=== PATIENT | male | born 1965 | race Caucasian/White ===

== ENCOUNTER → 2018-08-29 | Day surgery (SDC) | payer OTHER ==
[~2018-08-29] MED LIST: FENTANYL CITRATE/PF 100MCG/2 ML INJ ONE; GLUCAGON FOR INJ 1 MG VIAL ONE; HYOSCYAMINE SULFATE 0.5 MG/ML INJ ONE; LIDOCAINE HCL 2% LOCAL INJ 5 ML SDV VIAL INJ ONE; MIDAZOLAM HCL 2 MG/2 ML VIAL ONE; PROPOFOL IV EMULSION 10 MG/ML 50 ML VIAL ONE
[2018-08-29 12:35] VITALS: BP 126/88
[2018-08-29 13:45] LABS: C DIFFICILE TOXIN A&B AMP PROB NEGATIVE (NEGATIVE); WBC,FECAL (FECAL LACTOFERRIN) NEGATIVE (NEGATIVE)
--- NOTE | 2018-08-29 18:26 | Operative Report ---
DATE OF PROCEDURE: 08/29/2018 SURGEON: Cornel Juarez MD PROCEDURE: Colonoscopy and polypectomy with biopsies. INDICATIONS FOR COLONOSCOPY: Diarrhea, change in bowel habits, history of bright red blood per rectum. MEDICATION: The patient was done under MAC, please see anesthesiologist's note. PROCEDURE IN DETAIL: With the patient in left lateral decubitus position, flexible fiberoptic Olympus colonoscope was inserted into the rectum with ease and advanced all the way to the cecum. Mucosa overlying the cecum appeared to be within normal limits. The ileocecal valve was intubated and the scope was advanced into the terminal ileum. Biopsies were obtained. The scope was then withdrawn back into the colon. It was then withdrawn slowly and mucosa overlying the ascending, transverse, descending, sigmoid, and rectum revealed some patchy mild inflammatory changes that was more prominent in the left colon and random biopsies were obtained. One polyp was hot biopsied from the distal sigmoid and one polyp was hot biopsied from the rectum. The scope was then retroflexed into the distal rectum and moderate-sized internal hemorrhoids were noted none of which was actively bleeding. The scope was then straightened out, it was subsequently withdrawn after securing an adequate stool specimen that was sent for the appropriate stool studies. The patient tolerated procedure well. IMPRESSION: 1. Mild patchy colitis. 2. Sigmoid colon polyp, hot biopsied. 3. Rectal polyp, hot biopsied. 4. Proctitis, mild. 5. Internal hemorrhoids, none actively bleeding. PLAN: Follow up histology. Initiate Bentyl 10 mg one p.o. t.i.d. and VSL#3 one p.o. q.i.d. The patient might benefit from a followup colonoscopy in 5 years. Cornel Juarez MD [facility] [place] /[id number] cc: Dcik Blum DO
== END | disposition home or self-care (01) ==
LOC: OR 06:00
PROVIDERS: ATTEND Internal Medicine Gastroenterology
DX: K52.9 Noninfective gastroenteritis and colitis, unspecified (principal); K63.5 Polyp of colon; K62.1 Rectal polyp; K62.89 Other specified diseases of anus and rectum; K64.8 Other hemorrhoids; E05.00 Thyrotoxicosis with diffuse goiter without thyrotoxic crisis or storm; L42 Pityriasis rosea; R00.1 Bradycardia, unspecified; Z01.810 Encounter for preprocedural cardiovascular examination
CPT/HCPCS: 45380; 45384; 83630; 83993; 87045; 87177; 87328; 87493; 93005 ×2; J1610; J1980; J2001; J2250; J2704; 45378; 45385

== ENCOUNTER → 2018-08-31 | Outpatient (CLI) | payer OTHER ==
[~2018-08-31] MED LIST changes: +DIATRIZOATE MEGL/DIATRIZOA SOD 30 ML BTL PO ONE; -FENTANYL CITRATE/PF 100MCG/2 ML INJ ONE; -GLUCAGON FOR INJ 1 MG VIAL ONE; -HYOSCYAMINE SULFATE 0.5 MG/ML INJ ONE; +IOPAMIDOL 370 MG/ML 200 ML INFUS..BTL INJ ONE; -LIDOCAINE HCL 2% LOCAL INJ 5 ML SDV VIAL INJ ONE; -MIDAZOLAM HCL 2 MG/2 ML VIAL ONE; -PROPOFOL IV EMULSION 10 MG/ML 50 ML VIAL ONE; +SODIUM CHLORIDE 0.9% 50ML 50 ML ONE
--- NOTE | 2018-08-31 14:25 | Diagnostic Imaging Report ---
EXAM: CT Abdomen and Pelvis with contrast INDICATION: Lower abdominal pain. COMPARISON: None. TECHNIQUE: Abdomen and pelvis were scanned utilizing a multidetector helical scanner from the lung base to the pubic symphysis after administration of IV contrast. Coronal and sagittal reformations were obtained. Routine protocol was performed. Scan was performed when during portal venous phase. IV CONTRAST: 100 cc of Isovue 370 ORAL CONTRAST: Gastrografin COMPLICATIONS: None RADIATION DOSE: Total DLP: 267.4 mGy*cm Dose modulation, iterative reconstruction, and/or weight based adjustment of the mA/kV was utilized to reduce the radiation dose to as low as reasonably achievable. FINDINGS: LINES and TUBES: None. LOWER THORAX: Unremarkable HEPATOBILIARY: Subcentimeter right hepatic lobe hypodensity is too small to characterize, but likely represents a cyst. No biliary ductal dilation. GALLBLADDER: No radio-opaque stones or sludge. No wall thickening. SPLEEN: No splenomegaly. PANCREAS: No focal masses or ductal dilatation. ADRENALS: No adrenal nodules KIDNEYS/URETERS: Kidneys enhance symmetrically. No evidence of hydronephrosis, solid mass, or stone. GI TRACT: No evidence of wall thickening or distension. Appendix is normal. There is scattered colonic diverticulosis without CT evidence of diverticulitis. PELVIC ORGANS/BLADDER: The prostate measures up to 4.9 cm. Status post vasectomy. LYMPH NODES: No lymphadenopathy. VESSELS: Unremarkable. PERITONEUM / RETROPERITONEUM: No free air or fluid. BONES AND SOFT TISSUES: Unremarkable. CONCLUSION: No acute CT findings in the abdomen or pelvis. Scattered colonic diverticulosis without CT evidence of diverticulitis. Prostatomegaly. Signed by: Dr. Xander Menchaca MD on 08/31/2018 2:21 PM
== END ==
LOC: CT 11:40
PROVIDERS: ATTEND Internal Medicine Gastroenterology
DX: R10.30 Lower abdominal pain, unspecified (principal)
CPT/HCPCS: 74177; Q9967